=== PATIENT | male | born 1955 ===

== ENCOUNTER 2019-01-04 07:01 | Day surgery (SDC) | payer OTHER ==
[2019-01-02 09:25] VITALS: BMI 27.2
[2019-01-04 07:24] LABS: BASO # 0.02 K/mm3 (0.0-2.0); BASO % 0.1 % (0.0-3.0); EOS % 0.2 % (1.5-5.0); HEMOGLOBIN 13.3 g/dL (14.0-18.0); LYMPH # 1.6 (1.2-3.4); LYMPH % 11.1 % (22.0-35.0); MEAN CELL VOLUME 93.9 fl (80.0-105.0); MEAN CORPUSCULAR HEMOGLOBIN 31.1 pg (25.0-35.0); MEAN CORPUSCULAR HGB CONC 33.2 g/dl (31.0-37.0); MEAN PLATELET VOLUME 10.1 fl (7.0-11.0); MONO # 1.3 (0.1-0.6); MONO % 9.1 % (1.0-6.0); RBC 4.27 10^6/uL (3.5-6.1); RED CELL DISTRIBUTION WIDTH 13.7 % (11.5-14.5); WHITE BLOOD COUNT 14.1 10^3/uL (4.5-11.0)
[2019-01-04 07:34] LABS: INR 1.01; PARTIAL THROMBOPLASTIN TIME 30.6 Seconds (26.9-38.3); PROTHROMBIN TIME 11.4 SECONDS (9.4-12.5)
[2019-01-04 07:35] LABS: BLOOD UREA NITROGEN 21 mg/dL (7-21); CALCIUM 9.2 mg/dL (8.4-10.5); GFR NON-AFRICAN AMERICAN > 60
[2019-01-04] MEDS ORDERED: Adenosine 90 mg/30mL IV ONE ×2 (09:42→12:47)
[2019-01-04] MEDS ORDERED: Iohexol 350mgl/ml 50 ML ONE ×2 (09:42→12:08)
[2019-01-04] MEDS ORDERED: Verapamil 0 ML ONE (09:42)
[2019-01-04] MEDS ORDERED: Nitroglycerin 50mg in D5W 0 MG/0 ML BOTTLE IV ONE (09:42)
[2019-01-04] MEDS ORDERED: Lidocaine PF 2% (5 ml) Inj (For Cardiac Arrhy) ONE (09:42)
[2019-01-04] MEDS ORDERED: Iodixanol 320 MG/ML 200 ML BOTTLE IV ONE (09:42)
[2019-01-04] MEDS ORDERED: Midazolam 2 MG/2 ML VIAL ONE ×3 (11:05→11:56)
[2019-01-04] MEDS ORDERED: Iodixanol 320 MG/ML 100 ML BOTTLE IV ONE ×2 (11:27→12:08)
--- NOTE | 2019-01-04 11:48 | CARD ---
APPROVED REPORT Date of service: 01/04/2019 EKG Measurement Heart [id number] <Conclusion> Sinus bradycardia with marked sinus arrhythmia Voltage criteria for left ventricular hypertrophy T wave abnormality, consider lateral ischemia Abnormal ECG
[2019-01-04] MEDS ORDERED: DiphenhydrAMINE 50 mg/ml Inj ONE (12:23)
[2019-01-04] MEDS: Sodium Chloride 0.9% 1,000 ML IV SCH (19:07)
[2019-01-04 23:30] VITALS: TEMP 98
[2019-01-05] MEDS: Sodium Chloride 0.9% 1,000 ML IV SCH (03:00)
[2019-01-05 05:31] VITALS: BP 112/64; RESP 20; O2SAT 98
[2019-01-05 05:32] VITALS: PULSE 54
--- NOTE | 2019-01-05 08:14 | CARDCATH ---
PROCEDURE DATE: 01/04/2019 INDICATION: Mr. Silva is a 63-year-old male who was referred from [facility] to or for evaluation of symptoms of dyspnea with minimal activity, underwent an echocardiogram showing aortic root aneurysm with prolapse, aortic leaflet with severe aortic regurgitation. The patient underwent a cardiac catheterization with complete heart catheter preoperative valve surgical repair. 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 He is a very active and athletic male who does upper body cycling marathons. PROCEDURES: Complete heart catheterization with right and left heart cath, left heart catheterization with selective left and right coronary angiogram, left ventriculogram, aortogram, 6-Tanzanian right femoral arterial access and Mynx closure device for hemostasis, PTCA stenting of left circumflex coronary artery, deployment of 3.0 x 18 Corning drug-eluting stent, regeneration from 95% down to 0% NAT-3 flow, overall obtuse marginal branch regeneration from 60% down to 0% NAT-3 flow, PTCA stenting of proximal RCA with deployment of 3.5 x 24 Ash drug-eluting stent, regeneration from 85% down to 0% NAT-3 flow, FFR of proximal LAD physiologically nonsignificant at 0.84. TECHNIQUE OF INTERVENTION: After obtaining informed consent, the patient was brought to the cardiac cath suite in post-absorptive and non-sedated state. The patient was prepped and draped in the usual sterile fashion. A 2% lidocaine was used for infiltration of anesthesia. Using modified Seldinger technique, a 7-Tanzanian sheath was introduced into the left femoral vein, 6-Tanzanian sheath was introduced into the right femoral artery. Subsequently, under fluoroscopic guidance [place] catheter was advanced to the balloon and inflated to the IVC into the RA, RVP in wedge position, hemodynamics and saturation were obtained. Cardiac output using the thermodilution method was 4.27 L per minute, cardiac index was 2.3 L per minute/m2 area. The patient's RA pressures were 14/12 with a mean of 9. RV pressures were 38/9 with end diastolic of 16. PA pressure was 37/19 with a mean of 26 and the mean pulmonary capillary wedge pressure was 20 mmHg. After obtaining the right heart cath and hemodynamics, attention was then paid to the left coronary system over an exchange length JL wire. JL4 and JR4 diagnostic catheter were used to engage the left and right coronary system. Angiogram was obtained in different orthogonal views. LV gram was obtained and saturations were obtained, subsequently aortogram with PAN injection was done. ANGIOGRAPHIC FINDINGS: 3+ aortic insufficiency, LVEF normal at 66%, 83/20. CORONARY ANATOMY: Left main is a large sized vessel, bifurcates into left anterior descending and left circumflex coronary artery. LAD has a proximal moderate 55% stenosis. It gives out 2 medial size diagonal branches. Left circumflex runs in the AV groove, gives off 2 obtuse marginal branches. At the bifurcation of the first OM, the patient has high-grade 95% stenosis. RCA proximal 85% stenosis, gives off right PDA and PLV branches. Intervention performed, FFR of the LAD was done which was physiologically nonsignificant at 0.84. Subsequently, attention was paid to left circumflex OM system, for to the distal circulation and Whisper wire was negotiated to the obtuse marginal branch. The circ was stented with 3.0 X 18 Ash drug-eluting stent and then side branch of the OM was then subsequently ballooned with a plain old balloon angioplasty with opening the struts from the stent in the circ. Coronary angiogram done showed regeneration of 0% NAT-3 flow. Subsequently, attention was then paid to the RCA. Proximal RCA was stented with 3.5 x 26 Ash drug-eluting stent, maximum impaction, successful revascularization of the circumflex, OM and RCA with use of drug-eluting stents, FFR evaluating physiologically was significant at 0.84, severe AI. RECOMMENDATIONS: The above plan was proceeded after reviewing the cath findings with Dr. Jeovanny Epps. Plan is for patient to undergo mini AVR in the near future. The patient will follow with Dr. Jeovanny Epps for mini aortic valve replacement consultation next week. Because of his upper body being important for reactive secondary to inclusion body myositis, we decided to proceed with minimal approach and hybrid technique. Emmett Donald MD
--- NOTE | 2019-01-05 08:16 | CP.PCM.PN ---
Subjective - Date & Time of Evaluation Date of Evaluation: 01/05/19 Time of Evaluation: 08:14 - Subjective Subjective: feeling fine no complaints 5 beat v-tach noted yesterday Objective - Vital Signs/Intake and Output Vital Signs (last 24 hours): Temp Pulse Resp BP Pulse Ox 98.0 F 54 L 20 112/64 98 01/05/19 05:30 01/05/19 05:31 01/05/19 05:30 01/05/19 05:30 01/05/19 05:30 Intake and Output: 01/05/19 01/05/19 06:59 18:59 Intake Total 1740 Output Total 1750 Balance -10 - Medications Medications: Current Medications Aspirin (Aspirin Chewable) 81 mg PO DAILY JOEL Clopidogrel Bisulfate (Plavix) 75 mg PO DAILY JOEL Sodium Chloride (Sodium Chloride 0.9%) 1,000 mls @ 100 mls/hr IV .Q10H JOEL Last Admin: 01/05/19 03:00 Dose: 100 mls/hr - Labs Labs: 01/04/19 07:10 01/04/19 07:10 PT 11.4 SECONDS (9.4-12.5) 01/04/19 07:10 INR 1.01 01/04/19 07:10 APTT 30.6 Seconds (26.9-38.3) 01/04/19 07:10 - Constitutional Appears: Well - Head Exam Head Exam: ATRAUMATIC, NORMAL INSPECTION, NORMOCEPHALIC - Eye Exam Eye Exam: EOMI, Normal appearance, PERRL Pupil Exam: NORMAL ACCOMODATION, PERRL - ENT Exam ENT Exam: Mucous Membranes Moist, Normal Exam - Neck Exam Neck Exam: Full ROM, Normal Inspection. absent: Lymphadenopathy - Respiratory Exam Respiratory Exam: Clear to Ausculation Bilateral, NORMAL BREATHING PATTERN - Cardiovascular Exam Cardiovascular Exam: REGULAR RHYTHM, +S1, +S2. absent: Murmur - GI/Abdominal Exam GI & Abdominal Exam: Soft, Normal Bowel Sounds. absent: Tenderness - Rectal Exam Rectal Exam: NORMAL INSPECTION - Exam Exam: Circumcision, NORMAL INSPECTION External exam: NORMAL EXTERNAL EXAM Speculum exam: NORMAL SPECULUM EXAM Bimanual exam: NORMAL BIMANUAL EXAM - Extremities Exam Extremities Exam: Full ROM, Normal Capillary Refill, Normal Inspection. absent: Joint Swelling, Pedal Edema - Neurological Exam Neurological Exam: Alert, Awake, CN II-XII Intact, Normal Gait, Oriented x3 - Skin Skin Exam: Intact, Warm Assessment and Plan (1) S/P PTCA (percutaneous transluminal coronary angioplasty) Assessment & Plan: s/p pci of LCx and RcA cont dapt rx for plavix given rx for toprol xl , lipitor given rx for asa given Status: Acute (2) Aortic regurgitation Assessment & Plan: scheduled with Dr.Mark Epps for minimal AVR Kiera Romero will contact pt for consultation next week f/u in my office next week Status: Acute
== END 2019-01-05 11:01 | disposition home or self-care (01) ==
LOC: CATH 07:01 → 2RSO 14:40 → CATH 01-05 11:01
PROVIDERS: ATTEND Internal Medicine Interventional Cardiology
DX: I25.10 Atherosclerotic heart disease of native coronary artery without angina pectoris (principal); I35.1 Nonrheumatic aortic (valve) insufficiency; I47.2 Ventricular tachycardia; Z79.02 Long term (current) use of antithrombotics/antiplatelets; Z79.82 Long term (current) use of aspirin; G72.41 Inclusion body myositis [IBM]
CPT/HCPCS: 36415; 80048; 83036; 85025; 85175; 85610; 85730; 86850; 86900; 93005; 93460; 93567; 93571; 99152; 99153; C1725 ×3; C1760 ×2; C1769 ×4; C1874 ×2; C1887; C1894; C2629; C9600; C9601; J0153; J1200; J1644 ×2; J2250; J3010; J7030; Q9966; Q9967 ×2